=== PATIENT | male | born 1960 | race Caucasian/White ===

== ENCOUNTER → 2016-07-15 | Outpatient (CLI) | payer OTHER ==
[~2016-07-15] MED LIST: BACTRIM DS 8001 TA1 PO; CALCIUM W/D PO; CALCIUM500 MG; EPI EZ PEN1 MG/ML IM; KEFLEX500 MG PO; LIPITOR10 MG PO; MEDROL DOSEPAK4 MG PO; MOBIC7.5 MG; MOBIC7.5 MG PO; MUCINEX DM 30 M1 TE1 PO; PERCOCET 325 MG1 TA2 PO; PRILOSEC20 MG; PROAIR HFA0.09 MG/AC INH; SUBOXONE 2 MG-01 TA2 PO; SYMBICORT1 AE1 IH; SYMBICORT1 AE1 PO; ULTRAM50 MG; ULTRAM50 MG PO; VICODIN 5/500 505 MG PO; VITAMIN D50000 I2; VITAMIN D50000 I3 PO; XANAX0.25 MG PO; XANAX0.5 MG; XANAX0.5 MG PO; ZANTAC150 MG PO; ZITHROMAX Z PA250 MG PO; ZOCOR20 MG; ZOCOR20 MG PO; ZOFRAN4 MG PO
== END | disposition home or self-care (01) ==
LOC: ORTHO 01:18
DX: M85.812 Other specified disorders of bone density and structure, left shoulder (principal)

== ENCOUNTER → 2017-07-11 | Outpatient (CLI) | payer OTHER | END | disposition home or self-care (01) | LOC: ORTHO 01:52 | DX: M77.8 Other enthesopathies, not elsewhere classified (principal); M25.531 Pain in right wrist ==

== ENCOUNTER → 2018-11-12 | Outpatient (CLI) | payer OTHER ==
[~2018-11-12] MED LIST changes: +SUBOXONE 8 MG-1 EACH SL
== END | disposition home or self-care (01) ==
LOC: MRI 10-24 00:49
DX: M75.102 Unspecified rotator cuff tear or rupture of left shoulder, not specified as traumatic (principal); M62.50 Muscle wasting and atrophy, not elsewhere classified, unspecified site; M75.92 Shoulder lesion, unspecified, left shoulder; M19.012 Primary osteoarthritis, left shoulder

== ENCOUNTER → 2018-12-04 | Outpatient (CLI) | payer OTHER ==
--- NOTE | ~2018-12-04 | EKG ---
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
[2018-12-04 13:22] LABS: BASO # 0.1 10*3/uL (0.0-0.1); BASO % 0.4 % (0.0-1.0); EOS # 0.1 10*3/uL (0.0-0.4); EOS % 0.8 % (1.0-4.0); HEMATOCRIT 46.7 % (42.0-52.0); HEMOGLOBIN 16.2 g/dl (14.0-18.0); LYMPH # 2.8 10*3/uL (1.3-4.4); LYMPH % 24.2 % (27.0-41.0); MEAN CELL VOLUME 91.6 fl (80.0-94.0); MEAN CORPUSCULAR HGB 31.8 pg (27.0-31.0); MEAN CORPUSCULAR HGB CONC 34.7 g/dl (33.0-37.0); MEAN PLATELET VOLUME 11.6 fl (9.6-12.3); MONO # 0.7 10*3/uL (0.1-1.0); MONO % 6.5 % (3.0-9.0); NEUT # 7.8 10*3/uL (2.3-7.9); NEUT % 67.7 % (47.0-73.0); PLATELET COUNT AUTOMATED 258 10*3/uL (130-400); RED CELL DISTRI WIDTH 12.4 % (0-14.5); WHITE BLOOD COUNT 11.5 10*3/uL (4.8-10.8)
[2018-12-04 13:23] LABS: BILIRUBIN 1+ (NEGATIVE); BLOOD NEGATIVE (NEGATIVE); CLARITY TURBID (CLEAR); COLOR YELLOW (YELLOW); GLUCOSE NEGATIVE (NEGATIVE); KETONE NEGATIVE (NEGATIVE); LEUKO ESTERASE NEGATIVE (NEGATIVE); NITRITE NEGATIVE (NEGATIVE); PH 5.5 (5.0-9.0); SPECIFIC GRAVITY >= 1.030 (1.005-1.030); UROBILINOGEN 0.2 E.U./dl (0.2-1.0)
[2018-12-04 13:51] LABS: ALBUMIN 4.4 gm/dl (3.1-4.5); CHLORIDE 104 mmol/L (98-107); POTASSIUM 4.4 mmol/L (3.5-5.1); SODIUM 138 mmol/L (136-145)
[2018-12-04 13:53] LABS: MUCOUS 1+
[2018-12-04 13:58] LABS: ALKALINE PHOSPHATASE 86 U/L (45-117); BUN 17 mg/dl (7-24); SGOT/AST 23 IU/L (3-35); SGPT/ALT 48 U/L (12-78); TOTAL PROTEIN 8.2 gm/dL (6.4-8.2)
== END | disposition home or self-care (01) ==
LOC: LAB 10:15
PROVIDERS: Orthopaedic Surgery
DX: Z01.818 Encounter for other preprocedural examination (principal); F17.200 Nicotine dependence, unspecified, uncomplicated; M75.102 Unspecified rotator cuff tear or rupture of left shoulder, not specified as traumatic

== ENCOUNTER 2019-02-24 20:54 | Inpatient (IN) | payer OTHER ==
[~2019-02-24] VITALS: Ht 180.3 cm; Wt 90.7 kg
[2019-02-24 21:00] VITALS: BP 138/95
[2019-02-24 21:24] LABS: BASO % 0.3 % (0.0-1.0); EOS # 0.1 10*3/uL (0.0-0.4); EOS % 0.5 % (1.0-4.0); HEMATOCRIT 42.5 % (42.0-52.0); HEMOGLOBIN 14.8 g/dl (14.0-18.0); LYMPH # 2.5 10*3/uL (1.3-4.4); MEAN CELL VOLUME 90.2 fl (80.0-94.0); MEAN CORPUSCULAR HGB 31.4 pg (27.0-31.0); MEAN CORPUSCULAR HGB CONC 34.8 g/dl (33.0-37.0); MEAN PLATELET VOLUME 10.7 fl (9.6-12.3); MONO # 1.1 10*3/uL (0.1-1.0); NEUT # 12.1 10*3/uL (2.3-7.9); NEUT % 75.8 % (47.0-73.0); PLATELET COUNT AUTOMATED 232 10*3/uL (130-400); RED BLOOD COUNT 4.71 10*6/uL (4.50-5.90); RED CELL DISTRI WIDTH 11.9 % (0-14.5); WHITE BLOOD COUNT 15.9 10*3/uL (4.8-10.8)
[2019-02-24 21:56] LABS: ALBUMIN 3.1 gm/dl (3.1-4.5); ALKALINE PHOSPHATASE 80 U/L (45-117); BUN 16 mg/dl (7-24); CHLORIDE 103 mmol/L (98-107); POTASSIUM 3.3 mmol/L (3.5-5.1); SGOT/AST 22 IU/L (3-35); SGPT/ALT 26 U/L (12-78); SODIUM 137 mmol/L (136-145); TOTAL PROTEIN 7.9 gm/dL (6.4-8.2)
[2019-02-24 21:57] LABS: TROPONIN I < 0.015 ng/ml (<0.045)
[2019-02-24 22:07] VITALS: BP 158/95
[2019-02-24 23:00] VITALS: BP 150/67
[2019-02-24 23:23] VITALS: BP 132/93
--- NOTE | 2019-02-24 23:23 | NUR ---
A 58, admitted to , under the services of FLORENTINO Flores DO with a diagnosis of DYSPNEA, PNEUMONITIS, SEPSIS, HYPOKALEMIA. Chief complaint is SHORTNESS OF BREATH. Patient arrived via stretcher from ER. Monitor applied. Initial assessment completed. Vital signs taken and recorded. FLORENTINO FLORES DO notified of admission to the unit. Orders received. See assessment for past medical history, medications and allergies. Patient and/or family oriented to unit. [address] visitation policy reviewed. Clothing/patient valuable form completed. ARLIN PATINO
--- NOTE | 2019-02-24 23:55 | NUR ---
DR. MCKENZIE NOTIFIED OF PATIENT ADMISSION, ORDERS RECEIVED AND SUBMITTED.
[2019-02-25 03:10] LABS: BASO % 0.2 % (0.0-1.0); HEMATOCRIT 39.8 % (42.0-52.0); HEMOGLOBIN 13.4 g/dl (14.0-18.0); LYMPH # 1.1 10*3/uL (1.3-4.4); LYMPH % 8.2 % (27.0-41.0); MEAN CELL VOLUME 93.4 fl (80.0-94.0); MEAN CORPUSCULAR HGB 31.5 pg (27.0-31.0); MEAN CORPUSCULAR HGB CONC 33.7 g/dl (33.0-37.0); MEAN PLATELET VOLUME 10.8 fl (9.6-12.3); MONO # 0.2 10*3/uL (0.1-1.0); MONO % 1.3 % (3.0-9.0); NEUT # 11.5 10*3/uL (2.3-7.9); NEUT % 89.8 % (47.0-73.0); PLATELET COUNT AUTOMATED 206 10*3/uL (130-400); RED BLOOD COUNT 4.26 10*6/uL (4.50-5.90); WHITE BLOOD COUNT 12.8 10*3/uL (4.8-10.8)
[2019-02-25 03:23] LABS: BUN 15 mg/dl (7-24); CHLORIDE 109 mmol/L (98-107); CREATININE 1.11 mg/dL (0.70-1.30); POTASSIUM 3.9 mmol/L (3.5-5.1); SODIUM 141 mmol/L (136-145)
[2019-02-25 03:25] LABS: BILIRUBIN NEGATIVE (NEGATIVE); BLOOD NEGATIVE (NEGATIVE); CLARITY CLEAR (CLEAR); COLOR YELLOW (YELLOW); GLUCOSE NEGATIVE (NEGATIVE); KETONE NEGATIVE (NEGATIVE); LEUKO ESTERASE NEGATIVE (NEGATIVE); NITRITE NEGATIVE (NEGATIVE); SPECIFIC GRAVITY 1.015 (1.005-1.030)
[2019-02-25 03:32] LABS: WBC 0-2 wbc/hpf (0-5)
[2019-02-25 08:00] VITALS: BP 140/86
--- NOTE | 2019-02-25 09:00 | NUR ---
Analytical Engineer in to talk to patient. Patient states lives at home with and daughter. There are few steps in the home. Physician: none at present [facility] Home health services: none Patient's level of ADLs: INDEPENDENT Patient has working utilities: all working DME: none Follow-up physician's appointment after d/c: will be made by hospitalist nurse director upon discharge Does patient want to access PORTAL?: no Discharge plan discussed with patient, he states he lives at home with his and daughter, he states he is independent in adls and ambulation, he states he doesn't have a regular doctor at this time, educated him that he would be given a list of doctors and he would be able to choose one to follow up with, patient verbalized understanding, patient denies any home needs at this time. MEHDI ROSA
[2019-02-25 12:00] VITALS: BP 128/77
--- NOTE | 2019-02-25 12:20 | NUR ---
REQUESTING NICOTINE. SMOKES >1PPD. KIANA MARTEL NOTIFIED. SAID SHE WOULD ORDER A PATCH.
[2019-02-25 16:00] VITALS: BP 107/66
--- NOTE | 2019-02-25 17:55 | NUR ---
NEW IV STRATED IN LEFT AC 22 [address] ON FIRST ATTEMPT, GOOD BLOOD RETURN AND FLUSHED WIHTOUT DIFFCULTY, PT TOLERATED WELL
--- NOTE | 2019-02-25 19:40 | NUR ---
24 HR CHART CHECK COMPLETE
[2019-02-25 20:00] VITALS: BP 111/69
[2019-02-26] VITALS: BP 116/71
[2019-02-26] MEDS ORDERED: PREDNISONE10 MG PO (08:20)
[2019-02-26] MEDS ORDERED: AVPAK AZITHROM250 M1 PO (08:20)
--- NOTE | 2019-02-26 09:00 | NUR ---
case management visits with patient, he is medically stable for discharge and will be returning home and denies any home needs
--- NOTE | 2019-02-26 09:27 | NUR ---
[facility] Discharge instructions reviewed with patient/family. Patient receptive and verbalizes understanding. Follow-up care arranged. Written instructions given to patient/family. STAN VILLA
== END 2019-02-26 09:27 | disposition home or self-care (01) | DRG 720 ==
LOC: ED 20:54 → 4E 22:37 → EDHOLD 22:37 → 4E 23:01
PROVIDERS: Emergency Medicine; Internal Medicine; Nurse Practitioner Family; ADMIT Internal Medicine
DX: A41.9 Sepsis, unspecified organism (principal); J44.1 Chronic obstructive pulmonary disease with (acute) exacerbation; J18.9 Pneumonia, unspecified organism; E44.0 Moderate protein-calorie malnutrition; E78.5 Hyperlipidemia, unspecified; F32.9 Major depressive disorder, single episode, unspecified; F41.9 Anxiety disorder, unspecified; K21.9 Gastro-esophageal reflux disease without esophagitis; E87.6 Hypokalemia; J44.0 Chronic obstructive pulmonary disease with (acute) lower respiratory infection; Z87.891 Personal history of nicotine dependence; Z83.3 Family history of diabetes mellitus; Z82.3 Family history of stroke; Z82.49 Family history of ischemic heart disease and other diseases of the circulatory system; Z71.6 Tobacco abuse counseling; Z68.27 Body mass index [BMI] 27.0-27.9, adult